=== PATIENT | male | born 1970 | race Hispanic/Latino ===

== ENCOUNTER → 2018-08-22 | Day surgery (SDC) | payer OTHER ==
[~2018-08-22] MED LIST: ALLOPURINOL300 MG PO; FIBER TABS PO; INSULIN REGULAR, HUMAN 100 UNIT/1 ML 3ML VIAL ONE; KETAMINE HCL INJ 50 MG/ML 10 ML VIAL ONE; LIDOCAINE HCL 2% LOCAL INJ 5 ML SDV VIAL INJ ONE; LISINOPRIL10 MG PO; METFORMIN HCL500 MG PO; MIDAZOLAM HCL 2 MG/2 ML VIAL ONE; PANTOPRAZOLE SO40 MG PO; PROPOFOL IV EMULSION 10 MG/ML 50 ML VIAL ONE; [UNRECOGNIZED DRUG - OTHER] PO
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
--- OUTSIDE RECORDS SUMMARY | 2018-08-22 08:06 | XMS REPORT | Summary of Care ---
Author Organization Unknown Address Unknown Phone Unavailable Care Team Providers Care Training And Development Officer Name Role Phone PCP Unavailable Encounter Cristian(FAWAD) [id number] Date(s): 08/15/14 - 08/15/[address] [facility] [address] Discharge Diagnosis: Kidney stone Discharge Diagnosis: Renal mass, right Discharge Disposition: Home Physician Attending: Ryan Hawkins MD Reason for Visit FLANK PAIN Vital Signs 1 2 3 Most recent to oldest [Reference Range]: 165.1 cm (08/15/14 3:42 AM) Height 98.3 DegF (08/15/14 8:04 AM) 98.4 DegF (08/15/14 6:01 AM) 98.5 DegF (08/15/14 3:42 AM) Temperature Oral [96.4-99.1 DegF] 160 mmHg *HI* (08/15/14 8:04 AM) 160 mmHg *HI* (08/15/14 6:01 AM) 194 mmHg *HI* (08/15/14 3:42 AM) Systolic Blood Pressure [90-140 mmHg] 92 mmHg *HI* (08/15/14 8:04 AM) 87 mmHg (08/15/14 6:01 AM) 89 mmHg (08/15/14 3:42 AM) Diastolic Blood Pressure [60-90 mmHg] 16 BRMIN (08/15/14 8:04 AM) 18 BRMIN (08/15/14 6:01 AM) 18 BRMIN (08/15/14 3:42 AM) Respiratory Rate [14-20 BRMIN] 90 bpm (08/15/14 8:04 AM) 80 bpm (08/15/14 6:01 AM) 78 bpm (08/15/14 3:42 AM) Peripheral Pulse Rate [60-100 bpm] 110.455 kg (08/15/14 3:42 AM) Weight 40.52 m2 (08/15/14 3:42 AM) Body Mass Index Problem List Condition Effective Dates Status Health Status Informant Diabetes(Confirmed) Resolved Hypertension(Confirm Resolved ed) Allergies, Adverse Reactions, Alerts Substance Reaction Severity Status NKDA Active Medications acetaminophen-hydrocodone 325 mg-10 mg oral tablet 1 tab, Route: PO, Dosing Weight 110.455, kg, ONCE, STAT, Start date: 08/15/14 6: 06:00, Stop date: 08/15/14 6:06:00 Start Date: 08/15/14 Stop Date: 08/15/14 Status: Completed Dilaudid 1 mg, Route: IVP, ONCE, Dosing Weight 110.455, kg, Start date: 08/15/14 4:03:00, Stop date: 08/15/14 4:03:00 Start Date: 08/15/14 Stop Date: 08/15/14 Status: Completed [place] 10/325 oral tablet 1 tab, PO, Q6H, as needed for pain, # 16 tab, 0 Refill(s) Start Date: 08/15/14 Status: Ordered NS (Bolus) IV 1,000 mL, 1,000 ml/hr, Infuse Over: 1 hr, Route: IV, ONCE, Priority: STAT, Dosin g Weight 110.455 kg, Start date: 08/15/14 5:07:00, Duration: 1 doses or times, S top date: 08/15/14 5:07:00 Start Date: 08/15/14 Stop Date: 08/15/14 Status: Completed ondansetron 4 mg, Route: PO, Drug form: TABDIS, ONCE, Dosing Weight 110.455, kg, Priority: S TAT, Start date: 08/15/14 6:06:00, Stop date: 08/15/14 6:06:00 Start Date: 08/15/14 Stop Date: 08/15/14 Status: Completed Senna Plus oral tablet 2 tab, PO, Bedtime, Constipation, # 30 tab, 0 Refill(s) Start Date: 08/15/14 Status: Ordered Sodium Chloride 0.9% (Bolus) IV 1,000 mL, 1,000 ml/hr, Infuse Over: 1 hr, Route: IV, ONCE, Priority: STAT, Dosin g Weight 110.455 kg, Start date: 08/15/14 4:04:00, Duration: 1 doses or times, S top date: 08/15/14 4:04:00 Start Date: 08/15/14 Stop Date: 08/15/14 Status: Completed Zofran 4 mg, Route: IVP, Drug form: INJ, ONCE, Dosing Weight 110.455, kg, Priority: STA T, Start date: 08/15/14 4:04:00, Stop date: 08/15/14 4:04:00 Start Date: 08/15/14 Stop Date: 08/15/14 Status: Completed Zofran ODT 4 mg oral tablet, disintegrating 4 mg=1 tab, PO, Q8H, Nausea and Vomiting, Dissolve tab under tongue, # 10 tab, 0 Refill(s) Special Instructions: Dissolve tab under tongue Start Date: 08/15/14 Status: Ordered Results ELECTROLYTES Most recent to 1 oldest [Reference Range]: Sodium Lvl [135-145 140 mEq/L mEq/L] (08/15/14 4:00 AM) Potassium Lvl 3.8 mEq/L [3.5-5.1 mEq/L] (08/15/14 4:00 AM) Chloride Lvl [95-109 106 mEq/L mEq/L] (08/15/14 4:00 AM) CO2 [24-32 mEq/L] 26 mEq/L (08/15/14 4:00 AM) AGAP [10.0-20.0 11.8 mEq/L mEq/L] (08/15/14 4:00 AM) CHEM PANEL Most recent to 1 oldest [Reference Range]: Creatinine Lvl 1.3 mg/dL [0.5-1.4 mg/dL] (08/15/14 4:00 AM) eGFR 66 mL/min/1.73m2 1 *NA* (08/15/14 4:00 AM) BUN [7-22 mg/dL] 14 mg/dL (08/15/14 4:00 AM) Glucose Lvl [70-99 177 mg/dL 2 mg/dL] *HI* (08/15/14 4:00 AM) Calcium Lvl 8.5 mg/dL [8.5-10.5 mg/dL] (08/15/14 4:00 AM) 1Result Comment: The eGFR is calculated [...] be mul tiplied by the estimated BMI. 2Interpretive Data: Adult reference range values reflect the clinical guidelines of the [place] [employer]. URINE AND STOOL Most recent to 1 oldest [Reference Range]: UA Turbidity [Clear] Clear (08/15/14 6:12 AM) UA Color Ltyellow *NA* (08/15/14 6:12 AM) UA pH [5.0-8.0] 5.0 (08/15/14 6:12 AM) UA Spec Grav 1.015 [<=1.030] (08/15/14 6:12 AM) UA Glucose [Negative Negative mg/dL mg/dL] *NA* (08/15/14 6:12 AM) UA Blood [Negative] Large *ABN* (08/15/14 6:12 AM) UA Ketones [Negative Negative mg/dL mg/dL] *NA* (08/15/14 6:12 AM) UA Protein [Negative Negative mg/dL mg/dL] (08/15/14 6:12 AM) UA Urobilinogen <=1.0 mg/dL [0.1-1.0 mg/dL] *NA* (08/15/14 6:12 AM) UA Bili [Negative] Negative *NA* (08/15/14 6:12 AM) UA Leuk Est Negative [Negative] (08/15/14 6:12 AM) UA Nitrite Negative [Negative] (08/15/14 6:12 AM) UA WBC [0-5 /HPF] 1 /HPF (08/15/14 6:12 AM) UA RBC [0-2 /HPF] 45 /HPF *HI* (08/15/14 6:12 AM) UA Sq Epi None Seen *NA* (08/15/14 6:12 AM) HEMATOLOGY Most recent to 1 oldest [Reference Range]: WBC [3.7-10.4 K/CMM] 7.3 K/CMM (08/15/14 4:00 AM) RBC [4.70-6.10 5.48 M/CMM M/CMM] (08/15/14 4:00 AM) Hgb [14.0-18.0 g/dL] 12.6 g/dL *LOW* (08/15/14 4:00 AM) Hct [42.0-54.0 %] 38.8 % *LOW* (08/15/14 4:00 AM) MCV [80.0-94.0 fL] 70.8 fL *LOW* (08/15/14 4:00 AM) MCH [27.0-31.0 pg] 22.9 pg *LOW* (08/15/14 4:00 AM) MCHC [32.0-36.0 32.4 g/dL g/dL] (08/15/14 4:00 AM) RDW [11.5-14.5 %] 18.3 % *HI* (08/15/14 4:00 AM) Platelet [133-450 253 K/CMM K/CMM] (08/15/14 4:00 AM) MPV [7.4-10.4 fL] 8.3 fL (08/15/14 4:00 AM) Segs [45.0-75.0 %] 56.7 % (08/15/14 4:00 AM) Lymphocytes 32.7 % [20.0-40.0 %] (08/15/14 4:00 AM) Monocytes [2.0-12.0 6.2 % %] (08/15/14 4:00 AM) Eosinophils [0.0-4.0 3.8 % %] (08/15/14 4:00 AM) Basophils [0.0-1.0 0.6 % %] (08/15/14 4:00 AM) Segs-Bands # 4.2 K/CMM [1.5-8.1 K/CMM] (08/15/14 4:00 AM) Lymphocytes # 2.4 K/CMM [1.0-5.5 K/CMM] (08/15/14 4:00 AM) Monocytes # [0.0-0.8 0.5 K/CMM K/CMM] (08/15/14 4:00 AM) Eosinophils # 0.3 K/CMM [0.0-0.5 K/CMM] (08/15/14 4:00 AM) Microcyte [None 2+ Seen] *ABN* (08/15/14 4:00 AM) Medications Administered During Your Visit No data available for this section Immunizations No data available for this section
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
--- OUTSIDE RECORDS SUMMARY | 2018-08-22 08:07 | XMS REPORT | Summary of Care ---
Author Author [facility] Organization [facility] Address Unknown Phone Unavailable Encounter HQ Cristian(FAWAD) [id number] Date(s): 07/12/17 - 07/12/17 [facility] [address] [place] [address]- Discharge Disposition: Home or Self Care Attending Physician: Han Lynch MD Vital Signs No [...] of knee Partial nephrectomy Placement of stent1 [id number],rkidney Social History Social History Type Response Alcohol Past Smoking Status Former smoker; Exposure to Tobacco Smoke None; Cigarette Smoking Last 365 Days No; Reg Smoking Cessation Counseling No Assessment and Plan No data available for this section
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
[2018-08-22 10:30] VITALS: BP 129/94
--- NOTE | 2018-08-22 11:32 | Operative Report ---
DATE OF PROCEDURE: August 22, 2018 REFERRING PHYSICIAN: Dr. Marcela Mas PROCEDURES PERFORMED 1. Esophagogastroduodenoscopy with biopsies. 2. Colonoscopy with polypectomy. INDICATIONS FOR EGD: Nausea, heartburn, indigestion. INDICATIONS FOR COLONOSCOPY: Surveillance colonoscopy, personal history of colon polyps. MEDICATION: Patient was done under MAC. Please see anesthesiologist's note. PROCEDURE: With the patient in the left lateral decubitus position, the flexible fiberoptic Olympus gastroscope was introduced into the esophagus under direct visualization without any difficulty. There was some patchy erythema noted in the distal esophagus. The scope was then advanced with ease into the stomach, traversing a small sliding hiatal hernia. The mucosa overlying the antrum and the body revealed some patchy erythema and low-grade to moderate edema, and biopsies were obtained and sent to stain for H. pylori. Pylorus appeared to be of normal contour and shape. It was intubated with ease, and the scope was advanced all the way to the 2nd portion of the duodenum. Biopsies were obtained from the proximal 2nd portion to rule out sprue. Mucosa overlying the duodenal bulb appeared to be within normal limits. The scope was then withdrawn back into the stomach and retroflexed. Mucosa overlying the fundus appeared to be within normal limits. The previously described hiatal hernia was also noted in the retroflexed position. The scope was then straightened out. It was subsequently withdrawn. Patient tolerated the procedure well. IMPRESSION 1. Distal esophagitis. 2. Hiatal hernia. 3. Gastritis, biopsied. Biopsy sent to stain for H. pylori. 4. Rule out sprue. PLAN: Follow up histology. Initiate Protonix 40 mg 1 p.o. q.a.m. a.c. The patient was then turned around. After adequate lubrication of the anal canal, a flexible fiberoptic Olympus colonoscope was inserted into the rectum with ease and advanced all the way to the cecum. Two polyps were hot biopsied from the cecum. The ascending appeared to be within normal limits. One polyp was hot biopsied from the transverse colon. One polyp was snared from the descending colon. The sigmoid and rectum appeared to be within normal limits. The scope was then retroflexed into the distal rectum. Small internal hemorrhoids were noted along with hypertrophic anal papillae. The scope was then straightened out. It was subsequently withdrawn. A minute firm nodule was noted in the perianal area. Patient overall tolerated the procedure well. IMPRESSION 1. Cecal polyps, hot biopsied times 2. 2. Transverse colon polyp times 1, hot biopsied. 3. Descending colon polyp times 1, snared. 4. Internal hemorrhoids, none actively bleeding. 5. Hypertrophic anal papillae. 6. Perianal nodule. PLAN: Follow up histology. Initiate high-fiber, low-fat diet. Initiate high-fiber supplement. Patient might benefit from a followup colonoscopy in 3 years. Will need a general surgical referral for removal of the perianal nodule. Job#: [id number] cc:MARCELA MAS MD
== END | disposition home or self-care (01) ==
LOC: OR 08:02
PROVIDERS: ATTEND Internal Medicine Gastroenterology
DX: K29.50 Unspecified chronic gastritis without bleeding (principal); D12.4 Benign neoplasm of descending colon; K20.9 Esophagitis, unspecified; K44.9 Diaphragmatic hernia without obstruction or gangrene; K21.9 Gastro-esophageal reflux disease without esophagitis; K62.89 Other specified diseases of anus and rectum; K64.8 Other hemorrhoids; I10 Essential (primary) hypertension; E11.9 Type 2 diabetes mellitus without complications; R06.83 Snoring; Z88.8 Allergy status to other drugs, medicaments and biological substances; Z01.810 Encounter for preprocedural cardiovascular examination; Z79.84 Long term (current) use of oral hypoglycemic drugs; Z90.5 Acquired absence of kidney
CPT/HCPCS: 36415; 43239; 45384; 45385; 82948; 93005; J2001; J2250; 45378